=== PATIENT | female | born 1965 | race Caucasian/White ===

== ENCOUNTER 2016-11-04 14:52 | Emergency (ER) | payer MEDICAID ==
[~2016-11-04] VITALS: Ht 152.4 cm; Wt 52.0 kg
[~2016-11-04 14:52] MED LIST: HYDR-3498 PO; IBUP-1542 PO
[2016-11-04 14:55] VITALS: Ht 152.4 cm; Wt 52.0 kg
[2016-11-04] MEDS ORDERED: IBUPROFEN 800 MG TAB PO ONE (15:30)
--- NOTE | 2016-11-04 16:13 | RADRPT ---
PROCEDURE: XR Ribs. CLINICAL INDICATION: Right rib pain. TECHNIQUE: Three views of the right ribs were obtained. COMPARISON: None. FINDINGS: No rib fracture or other focal lesion is identified. The underlying lungs are unremarkable, without pleural effusion or pneumothorax seen. RPTAT:HJJR IMPRESSION: Unremarkable right rib series. Physician Rei Date Time Electronically viewed and signed by Ahmet Sauer Physician on 11/04/2016 16:13 JR/
--- NOTE | 2016-11-04 16:14 | RADRPT ---
PROCEDURE: XR Chest. CLINICAL INDICATION: Chest pain. Right rib pain TECHNIQUE: PA upright view of the chest was obtained. COMPARISON: None. FINDINGS: The cardiomediastinal silhouette is within normal limits. The lungs are clear. There is no evidenc e for pleural effusion, pneumothorax or pulmonary vascular congestion. The osseous structures are i ntact with no evidence for acute abnormality. RPTAT:HJJR IMPRESSION: No evidence for acute intrathoracic pathology. Physician Rei Date Time Electronically viewed and signed by Physician Rei on 11/04/2016 16:14 JR/
[2016-11-04] MEDS ORDERED: IBUP800T25 PO (16:19)
--- NOTE | 2016-11-04 16:19 | ERD ---
ER Documentation Chief Complaint Date/Time DATE: 11/04/16 TIME: 16:16 Chief Complaint right back pain s/p fall wednesday This is a 51-year-old female who presents to the emergency room for evaluation of right-sided back pain. The patient does state that she slipped and fell approximately 3 days ago and states she fell on her back. She denies any head injury or loss of consciousness. She localizes her back pain to the right portion of her back and denies any radiation of the pain. She denies any palpitations or chest pain associated with this and denies being on any blood thinners. She states that she has been taking "tiger balm" for pain with only minimal relief ROS All systems reviewed and are negative except as per history of present illness. Medications Home Meds Active Scripts Hydrocodone Bit-Acetaminophen* (Andrew*) 5-325 Mg Tab, 1 TAB PO Q8 Y for PAIN, # 7 TAB 0 Refills Prov:RADHA BATISTA PA-C 10/22/15 Ibuprofen* (Motrin*) 600 Mg Tab, 600 MG PO Q8, #30 TAB 0 Refills Prov:RADHA BATISTA PA-C 10/22/15 Ibuprofen* (Motrin*) 600 Mg Tab, 600 MG PO Q6, #30 TAB 0 Refills Prov:RADHA BATISTA PA-C 10/18/15 Allergies Allergies: Coded Allergies: No Known Allergy (Unverified , 10/18/15) PMhx/Soc Medical and Surgical Hx: pt denies Medical Hx, pt denies Surgical Hx Hx Respiratory Disorders: Yes (asthma) Hx Alcohol Use: No Hx Substance Use: No Hx Tobacco Use: No Physical Exam Vitals Vital Signs Date Time Temp Pulse Resp B/P Pulse Ox O2 Delivery O2 Flow Rate FiO2 11/04/16 14:55 98.0 66 18 119/72 100 Physical Exam INITIAL VITAL SIGNS: Reviewed by me GENERAL: The patient is well developed and appropriate for usual state of health in no apparent distress HEENT: Pupils equal, round, and reactive to light. EOMI. There is no scleral icterus. NECK: C-spine is soft and supple, there is no meningismus. There is no cervical lymphadenopathy. LUNGS: Clear to auscultation bilaterally. There are no rales, wheezes or rhonchi. HEART: Regular rate and rhythm, no murmurs, clicks, rubs or gallops. ABDOMEN: Soft, non-tender, non-distended. There are bowel sounds in all four quadrants. No rebound or guarding. EXTREMITIES: There is no peripheral cyanosis or edema. No focal swelling or erythema. NEUROLOGICAL: The patient moves all four extremities with 5/5 strength. Cranial nerves II - XII are intact. Normal gait. Alert and oriented SKIN: There is no apparent rash or petechiae Musculoskeletal: Tenderness to palpation lower right lateral rib cage, no paradoxical chest wall movement. HEME/LYMPHATIC: There is no evidence of excessive bruising or lymphedema. PSYCHIATRIC: The patient does not appear anxious or depressed. Results 24 hrs Current Medications Medications (Trade) Dose Ordered Sig/Rosi Route PRN Reason Start Time Stop Time Status Last Admin Dose Admin Ibuprofen (Motrin) 800 mg ONCE ONCE PO 11/04/16 15:30 11/04/16 15:31 DC 11/04/16 16:11 Procedures/MDM Chest X-ray 1V Interpreted by me: Soft Tissue: No acute abnormalities Bones: No acute abnormalities Mediastinum/Cardiac Silhouette/Lungs: [No acute abnormalities] X-ray Ribs 2V Interpreted by me: Soft Tissue: No acute abnormalities Bones: No acute abnormalities Mediastinum/Cardiac Silhouette/Lungs: [No acute abnormalities] This 51-year-old female presents to the emergency room for evaluation of a ground-level fall with right sided rib pain on my examination. This patient had a chest x-ray and a rib series both of which are negative. The patient does not have any bruising on the back, my suspicion for retroperitoneal hemorrhage is low. She is hemodynamically stable. The patient was given Motrin. She is able to ambulate and does not appear to be in any acute distress. This patient will be discharged at this time with a prescription for Motrin for rib contusion, and back pain Departure Diagnosis: Primary Impression: Back pain Additional Impression: Contusion of rib on right side Condition: Stable MARIO VERDUGO DO November 04, 2016 16:19
== END 2016-11-04 17:14 | disposition home or self-care (01) ==
LOC: FTE 14:52
DX: S29.9XXA Unspecified injury of thorax, initial encounter (principal); S20.211A Contusion of right front wall of thorax, initial encounter; J45.909 Unspecified asthma, uncomplicated; W01.0XXA Fall on same level from slipping, tripping and stumbling without subsequent striking against object, initial encounter; Y92.9 Unspecified place or not applicable
CPT/HCPCS: 71010; 71100; Z7502; Z7610

== ENCOUNTER 2019-01-28 11:23 | Emergency (ER) | payer MEDICAID ==
[~2019-01-28] VITALS: Ht 154.9 cm; Wt 48.1 kg
[~2019-01-28 11:23] MED LIST changes: +ACET500C5 PO; +CEPH-443 PO; +IBUP800T48 PO
[2019-01-28 11:26] VITALS: BP 118/68; PULSE 70; RESP 18; Ht 154.9 cm; Wt 48.1 kg
--- NOTE | 2019-01-28 13:47 | ERD ---
ER Documentation Chief Complaint Chief Complaint squeezing upper back pain moving to left shoulder w/cough x2wks HPI 53-year-old female presented to ED for back pain cough x2 weeks. Patient states that her symptoms have been on and off and she just generally does not feel herself. Patient states that sometimes she does experience a little bit of chest pain and shortness of breath on and off but she recently was diagnosed with bronchitis and has been taken an albuterol inhaler. Patient states that she smokes cigarettes occasionally. Patient denies any allergies to medications. Patient states the discomfort is a 9 out of 10 and comes and goes. ROS All systems reviewed and are negative except as per history of present illness. Medications Home Meds Active Scripts Acetaminophen* (Tylophen*) 500 Mg Capsule, 1 CAP PO Q6H PRN for PAIN AND OR ELEVATED TEMP, #20 CAP Prov:SHERITA PATINO PA-C 01/28/19 Cephalexin* (Keflex*) 500 Mg Capsule, 500 MG PO BID for 7 Days, CAP Prov:SHERITA PATINO PA-C 01/28/19 Ibuprofen* (Motrin*) 800 Mg Tab, 800 MG PO Q6H PRN for PAIN AND OR ELEVATED TEMP, #30 TAB Prov:MARIO VERDUGO DO 11/04/16 Hydrocodone Bit-Acetaminophen* ([place]*) 5-325 Mg Tab, 1 TAB PO Q8 PRN for PAIN, #7 TAB 0 Refills Prov:RADHA BATISTA PA-C 10/22/15 Ibuprofen* (Motrin*) 600 Mg Tab, 600 MG PO Q8, #30 TAB 0 Refills Prov:RADHA BATISTA PA-C 10/22/15 Ibuprofen* (Motrin*) 600 Mg Tab, 600 MG PO Q6, #30 TAB 0 Refills Prov:RADHA BATISTA PA-C 10/18/15 Allergies Allergies: Coded Allergies: No Known Allergy (Unverified , 10/18/15) PMhx/Soc Medical and Surgical Hx: pt denies Surgical Hx Hx Respiratory Disorders: Yes (asthma) Hx Alcohol Use: No Hx Substance Use: No Hx Tobacco Use: No Smoking Status: Never smoker FmHx Family History: No diabetes, No coronary disease, No other Physical Exam Vitals Vital Signs Date Temp Pulse Resp B/P (MAP) Pulse Ox O2 O2 Flow FiO2 Time Delivery Rate 01/28/19 97.6 70 18 118/68 98 11:26 (85) Physical Exam GENERAL: Mild distress HEENT: Atraumatic. Conjunctivae are pink. Pupils equal, round, and reactive to light. There is no scleral icterus. Tympanic membranes clear bilaterally. Oropharynx clear. No nystagmus or photophobia. NECK: C-spine is soft and supple. There is no meningismus. There is no cervical lymphadenopathy. CHEST: Clear to auscultation bilaterally. There are no rales, wheezes or rhonchi. HEART: Regular rate and rhythm. No murmurs, clicks, rubs or gallops. ABDOMEN:Soft, nontender and nondistended. Good bowel sounds. No rebound or guarding. No gross peritonitis. No gross organomegaly or masses. No Rock sign or McBurney point tenderness. BACK: No midline or flank tenderness. Results 24 hrs Laboratory Tests Test 01/28/19 12:59 01/28/19 13:00 POC Beta HCG, Qualitative NEGATIVE Bedside Urine pH (LAB) 7.0 Bedside Urine Protein (LAB) Trace Bedside Urine Glucose (UA) Negative Bedside Urine Ketones (LAB) Negative Bedside Urine Blood Trace-intact Bedside Urine Nitrite (LAB) Negative Bedside Urine Leukocyte Esterase (L 1+ Procedures/MDM ED course: The patient was stable throughout the ED course. The patient and/or family informed of laboratory and diagnostic imaging results throughout the ED course. EKG: Read by Dr. Junior attending physician. EKG shows normal sinus rhythm at rate of 62 No arrhythmias, acute ST elevations or T wave changes were noted. Diagnostic imaging: Read by radiologist Dr. Michael PROCEDURE: XR Chest. CLINICAL INDICATION: Shortness of breath TECHNIQUE: Frontal chest x-ray was obtained. COMPARISON: Chest x-ray November 04, 2016 FINDINGS: The heart is not enlarged. Mediastinum is not widened. No hilar masses seen. Lungs are clear of any infiltrates. There is no effusion or pneumothorax. The osseous structures appear normal. IMPRESSION: No evidence for active cardiopulmonary disease. Medical decision makin-year-old female presented to ED for multiple symptoms. Patient was recently treated for bronchitis and is currently taking albuterol inhaler. His physical exam was unremarkable patient's lungs were clear bilateral patient has good S1- S2 sounds patient's abdomen was soft nontender there is no signs of skin lesions the patient is afebrile with vitals and stable limit. Patient's chest x-ray was unremarkable. Patient's EKG was unremarkable at this time I have low suspicion for [place], PE, DVT, pneumonia, pericarditis. Patient's UA indicated that the patient has a UTI. The patient had no CVA tenderness and is afebrile at this time I have low suspicion for pyelonephritis. The patient meets criteria to be treated outpatient with Keflex and follow-up with a primary care provider in 1 to 2 days. I advised the patient if symptoms worsen return to ED immediately. All questions were answered upon discharge and patient is in agreement treatment plan. Prescription for home: Keflex Acetaminophen I have discussed with the patient proper use and common side effects to expert with the medication . I advised the patient/family to speak with the pharmacist dispensing the medication to be advised of any potential drug interactions with other medication or supplements they may be taking. Discharge: At this time, patient is stable for discharge and outpatient management. I have instructed the patient to follow-up with his\her primary care physician in 1 to 2 days. I have discussed with the patient the possibility of needing to see a specialist for further work-up and imaging studies if symptoms persist. I have instructed the patient to promptly return to the ER for any new or worsening symptoms including increased pain, fever, nausea, vomiting, weakness or LOC. The patient and\or family expressed understanding of and agreement with this plan. All questions were answered. Home care instructions were provided. Disclaimer: Inadvertent spelling and grammatical errors are likely due to EHR\dictation software use and do not reflect on the overall quality of patient care. Also, please note that the electronic time recorded on the note does not necessarily reflect the actual time of the patient encounter. Departure Diagnosis: Primary Impression: UTI (urinary tract infection) Urinary tract infection type: site unspecified Hematuria presence: with hematuria Qualified Codes: N39.0 - Urinary tract infection, site not sp ecified; R31.9 - Hematuria, unspecified Condition: Stable Patient Instructions: Understanding Urinary Tract Infections (UTIs) Referrals: [facility] YOU HAVE RECEIVED A MEDICAL SCREENING EXAM AND THE RESULTS INDICATE THAT YOU DO NOT HAVE A CONDITION THAT REQUIRES URGENT TREATMENT IN THE EMERGENCY DEPARTMENT. FURTHER EVALUATION AND TREATMENT OF YOUR CONDITION CAN WAIT UNTIL YOU ARE SEEN IN YOUR DOCTORS OFFICE WITHIN THE NEXT 1-2 DAYS. IT IS YOUR RESPONSIBILITY TO MAKE AN APPOINTMENT FOR FOLOW-UP CARE. IF YOU HAVE A PRIMARY DOCTOR --you should call your primary doctor and schedule an appointment IF YOU DO NOT HAVE A PRIMARY DOCTOR YOU CAN CALL OUR PHYSICIAN REFERRAL HOTLINE AT IF YOU CAN NOT AFFORD TO SEE A PHYSICIAN YOU CAN CHOSE FROM THE FOLLOWING [facility] [address] [facility] [address] [facility] [address] [facility] [address] [facility] [address] [facility] [facility] [address] [facility] [facility] YOU HAVE RECEIVED A MEDICAL SCREENING EXAM AND THE RESULTS INDICATE THAT YOU DO NOT HAVE A CONDITION THAT REQUIRES URGENT TREATMENT IN THE EMERGENCY DEPARTMENT. FURTHER EVALUATION AND TREATMENT OF YOUR CONDITION CAN WAIT UNTIL YOU ARE SEEN IN YOUR DOCTORS OFFICE WITHIN THE NEXT 1-2 DAYS. IT IS YOUR RESPONSIBILITY TO MAKE AN APPOINTMENT FOR FOLOW-UP CARE. IF YOU HAVE A PRIMARY DOCTOR --you should call your primary doctor and schedule and appointment IF YOU DO NOT HAVE A PRIMARY DOCTOR YOU CAN CALL OUR PHYSICIAN REFERRAL HOTLINE AT . IF YOU CAN NOT AFFORD TO SEE A PHYSICIAN YOU CAN CHOSE FROM THE [facility]LLOWING [facility]: [facility] [address] [place] [address] [facility] [address] [place] [address] [facility] [address] [place] [address] Additional Instructions: Call your primary care doctor TOMORROW for an appointment during the next 1-2 days.See the doctor sooner or return here if your condition worsens before your appointment time. SHERITA PATINO PA-C Jan 28, 2019 13:47
== END 2019-01-28 13:51 | disposition home or self-care (01) ==
LOC: FTE 11:23
DX: N39.0 Urinary tract infection, site not specified (principal); J45.909 Unspecified asthma, uncomplicated; R07.9 Chest pain, unspecified
CPT/HCPCS: 71045; 81003; 81025; 93005; Z7502